=== PATIENT | male | born 1940 | race Two or more races ===

== ENCOUNTER 2018-02-14 20:17 | Inpatient (IN) | payer MEDICARE, OTHER ==
[~2018-02-14] VITALS: Ht 167.6 cm; Wt 89.4 kg
[2018-02-14 20:00] VITALS: BP 100/67
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
[2018-02-14] MEDS ORDERED: LORAZEPAM 0.5 MG TABLET PO PRN (21:00)
[2018-02-14] MEDS ORDERED: ACETAMINOPHEN 325 MG TABLET PO PRN (21:00)
[2018-02-14] MEDS ORDERED: MAGNESIUM HYDROXIDE 30 ML UDC PO PRN (21:00)
[2018-02-14] MEDS ORDERED: MAG HYDROX/AL HYDROX/SIMETH 30 ML UDC PO PRN (21:00)
[2018-02-14] MEDS ORDERED: GABA-534 PO (21:31)
[2018-02-14] MEDS ORDERED: PARO40TA PO (21:31)
[2018-02-14] MEDS ORDERED: ASPI-1169 PO (21:31)
[2018-02-14] MEDS ORDERED: CYAN50008 PO (21:31)
[2018-02-14] MEDS ORDERED: CARB-93 PO (21:31)
[2018-02-14] MEDS ORDERED: MAGN400T26 PO (21:31)
[2018-02-14] MEDS ORDERED: TAMS-12 PO (21:31)
[2018-02-14] MEDS ORDERED: ATOR40TA PO (21:31)
[2018-02-14] MEDS: GABAPENTIN 300 MG CAPSULE PO SCH (23:00)
[2018-02-14] MEDS: TAMSULOSIN 0.4 MG CAP.SR.24H PO SCH (23:01)
[2018-02-14] MEDS: ATORVASTATIN 40 MG TABLET PO SCH (23:01)
[2018-02-15 02:03] VITALS: BP 109/68
[2018-02-15] MEDS: CARBIDOPA/LEVODOPA 25/100 MG 1 UDTAB PO SCH ×3 (08:13→16:11)
[2018-02-15] MEDS: MAGNESIUM OXIDE 400 MG TABLET PO SCH (08:13)
[2018-02-15] MEDS: ASPIRIN 81 MG TAB.CHEW PO SCH (08:13)
[2018-02-15] MEDS ORDERED: CYANOCOBALAMIN 500 MCG TABLET PO SCH (09:00)
[2018-02-15 09:21] VITALS: BP 130/73
[2018-02-15] MEDS: CYANOCOBALAMIN 500 MCG TABLET PO SCH (12:51)
[2018-02-15 16:38] VITALS: BP 113/75
[2018-02-15] MEDS: SERTRALINE HCL 50 MG TABLET PO SCH (17:58)
[2018-02-15 20:37] VITALS: BP 119/51
[2018-02-15] MEDS: ATORVASTATIN 40 MG TABLET PO SCH (21:19)
[2018-02-15] MEDS: GABAPENTIN 300 MG CAPSULE PO SCH (21:19)
[2018-02-15] MEDS: TAMSULOSIN 0.4 MG CAP.SR.24H PO SCH (21:37)
[2018-02-15] MEDS ORDERED: TAMSULOSIN 0.4 MG CAP.SR.24H PO SCH (22:00)
[2018-02-15] MEDS ORDERED: ATORVASTATIN 40 MG TABLET PO SCH (22:00)
[2018-02-15] MEDS ORDERED: GABAPENTIN 300 MG CAPSULE PO SCH (22:00)
[2018-02-16] MEDS: TEMAZEPAM 7.5 MG CAPSULE PO PRN (00:39)
[2018-02-16 08:00] VITALS: BP 102/72
[2018-02-16] MEDS: CARBIDOPA/LEVODOPA 25/100 MG 1 UDTAB PO SCH ×3 (08:28→16:03)
[2018-02-16] MEDS: MAGNESIUM OXIDE 400 MG TABLET PO SCH (08:28)
[2018-02-16] MEDS: SERTRALINE HCL 50 MG TABLET PO SCH (08:28)
[2018-02-16] MEDS: CYANOCOBALAMIN 500 MCG TABLET PO SCH (08:29)
[2018-02-16] MEDS: ASPIRIN 81 MG TAB.CHEW PO SCH (08:30)
[2018-02-16 09:08] LABS: BASOPHILS % (AUTO) 0.4 % (0.0-2.0); HEMATOCRIT 44 % (39-51); HEMOGLOBIN 14.4 g/dL (13.5-17.5); LYMPHOCYTES # (AUTO) 2.2 /CMM (0.8-4.8); LYMPHOCYTES % (AUTO) 34.3 % (20.0-44.0); MEAN CORPUSCULAR HGB CONC 33 g/dl (31.0-36.0); MEAN CORPUSCULAR VOLUME 95 fL (80-96); MONOCYTES # (AUTO) 0.7 /CMM (0.1-1.30); MONOCYTES % (AUTO) 11.5 % (2.0-12.0); NEUTROPHILS # (AUTO) 3.2 /CMM (1.8-8.9); NEUTROPHILS % (AUTO) 50.8 % (43.0-81.0); PLATELET COUNT (AUTO) 239 /CMM (150-450); RDW COEFFICIENT OF VARIATION 13.2 (11.5-15.0); RED BLOOD CELL COUNT(AUTO) 4.59 MIL/uL (4.5-6.0); WHITE BLOOD COUNT (AUTO) 6.4 K/uL (4.3-11.0)
[2018-02-16 09:33] LABS: THYROID STIMULATING HORMONE 2.771 uIU/mL (0.358-3.74)
[2018-02-16 09:41] LABS: ALANINE AMINOTRANSFERASE 18 U/L (12-78); ALBUMIN 3.4 g/dL (3.4-5.0); ALKALINE PHOSPHATASE 89 U/L (46-116); ASPARTATE AMINOTRANSFERASE 29 U/L (15-37); BILIRUBIN,TOTAL 0.7 mg/dL (0.2-1.0); CALCIUM, SERUM 8.7 mg/dL (8.5-10.1); CARBON DIOXIDE 25 mmol/L (21-32); CHLORIDE 103 mmol/L (98-107); GLUCOSE 100 mg/dL (74-106); MAGNESIUM 2.1 mg/dL (1.8-2.4); PHOSPHORUS 4.2 mg/dL (2.5-4.9); POTASSIUM 4.2 mmol/L (3.5-5.1); SODIUM SERUM 138 mmol/L (136-145); TOTAL PROTEIN, SERUM 6.7 g/dL (6.4-8.2); UREA NITROGEN, BLOOD 19 mg/dL (7-18)
--- NOTE | 2018-02-16 14:46 | NUR ---
RAOUL called the pt's , Faith ([phone]), and discussed the initial discharge plan. She stated that the pt is welcome to return home upon discharge and that they will need psychiatric referrals.
--- NOTE | 2018-02-16 14:47 | NUR ---
Initial Discharge Plan: Pt currently lives at [address] [facility], [address], [place] [address]; ([phone]) with his , Faith Gorman ([phone]). Per pt and his , the pt will be returning home upon discharge. SW will work with the pt and the MD regarding discharge planning. SW will form a safe and proper discharge.
[2018-02-16 16:04] VITALS: BP 118/59
[2018-02-16 16:44] LABS: CHOLESTEROL 126 mg/dL (<200); HDL CHOLESTEROL 39 mg/dL (40-60); LDL 77 mg/dL (0-99); TRIGLYCERIDES 87 mg/dL (30-150)
--- NOTE | 2018-02-16 19:30 | NUR ---
GPS RN NOTE, RECEIVED PATIENT AWAKE AND IN BED, NO S/S OR COMPLAINTS OF PAIN AT THIS TIME. PATIENT IS DISPLAYING NO S/S OF APPARENT DISTRESS AT THIS TIME. PATIENT BREATHING IS UNLABORED WITH EQUAL RISE AND FALL OF THE CHEST. PATIENT IS ALERT AND ORIENTED X 3 ON ROOM AIR WITH A SPO2 OF 96%. PATIENT IS MED COMPLIANT, CALM, COOPERATIVE, DISORGANIZED, DEPRESSED, AND NEEDS REDIRECTION. PATIENT DENIES SUICIDE IDEATIONS AND HOMICIDAL IDEATIONS AT THIS TIME. PATIENT ASSISTED WITH TURNING AND REPOSITIONING Q 2HRS AND PRN FOR COMFORT AND CIRCULATION. PATIENT HAS NO NEEDS AT THIS TIME. PATIENT EDUCATED ON THE USE OF THE CALL MUNOZ. PATIENT BED SIDE RAILS UP X 2 FOR SAFETY, BED IS LOCKED, LOW, AND I WILL CONTINUE TO MONITOR AND MAINTAIN SAFETY Q15 MIN WITH THE HELP OF STAFF.
[2018-02-16 20:05] VITALS: BP 116/65
[2018-02-16] MEDS: TAMSULOSIN 0.4 MG CAP.SR.24H PO SCH (21:33)
[2018-02-16] MEDS: ATORVASTATIN 40 MG TABLET PO SCH (21:33)
[2018-02-16] MEDS: GABAPENTIN 300 MG CAPSULE PO SCH (21:33)
[2018-02-17 08:00] VITALS: BP 98/66
[2018-02-17] MEDS: SERTRALINE HCL 50 MG TABLET PO SCH (08:32)
[2018-02-17] MEDS: CYANOCOBALAMIN 500 MCG TABLET PO SCH (08:32)
[2018-02-17] MEDS: CARBIDOPA/LEVODOPA 25/100 MG 1 UDTAB PO SCH ×3 (08:32→16:01)
[2018-02-17] MEDS: MAGNESIUM OXIDE 400 MG TABLET PO SCH (08:32)
[2018-02-17] MEDS: ASPIRIN 81 MG TAB.CHEW PO SCH (08:32)
--- NOTE | 2018-02-17 10:52 | NUR ---
Radha Rdz ([phone]), pt's son, called the SW and stated that he does not think that the pt meets criteria to be inpatient and stated that he would like him to be discharged as soon as possible. SW stated that once Dr. Hurley provides a discharge date that she would inform the family about it.
--- NOTE | 2018-02-17 14:03 | NUR ---
RAOUL called the pt's son, Radha Rdz ([phone]), and informed him that the pt will be discharged on Thursday. He stated that he will talk to his mom and then call the SW back by to inform her about the discharge time.
[2018-02-17 16:00] VITALS: BP 126/76
[2018-02-17 19:51] VITALS: BP 95/96
[2018-02-17] MEDS: GABAPENTIN 300 MG CAPSULE PO SCH (21:02)
[2018-02-17] MEDS: TAMSULOSIN 0.4 MG CAP.SR.24H PO SCH (21:02)
[2018-02-17] MEDS: ATORVASTATIN 40 MG TABLET PO SCH (21:02)
[2018-02-17] MEDS: TEMAZEPAM 7.5 MG CAPSULE PO PRN (23:52)
[2018-02-18 08:00] VITALS: BP 100/64
[2018-02-18] MEDS: CARBIDOPA/LEVODOPA 25/100 MG 1 UDTAB PO SCH ×3 (08:55→17:07)
[2018-02-18] MEDS: SERTRALINE HCL 50 MG TABLET PO SCH (08:55)
[2018-02-18] MEDS: CYANOCOBALAMIN 500 MCG TABLET PO SCH (08:56)
[2018-02-18] MEDS: MAGNESIUM OXIDE 400 MG TABLET PO SCH (08:56)
[2018-02-18] MEDS: ASPIRIN 81 MG TAB.CHEW PO SCH (08:56)
--- NOTE | 2018-02-18 16:03 | NUR ---
RAOUL called the pt's son, Radha Rdz ([phone]), and informed him that she will have a list of psychiatrists for the pt when he is discharged. The son stated that his mom will picker box operator at the pt at 12pm.
--- NOTE | 2018-02-18 16:04 | NUR ---
SW called the pt's son, Radha Rdz ([phone]), and went over the psychiatrists that were found in their area that speak Farsi.
[2018-02-18 20:00] VITALS: BP 109/64
[2018-02-18] MEDS: TEMAZEPAM 7.5 MG CAPSULE PO PRN (20:25)
--- NOTE | 2018-02-18 20:25 | NUR ---
TEMAZEPAM 15 MG CAP PO GIVEN FOR SLEEP. PER PATIENT'S REQUEST.
[2018-02-18] MEDS: TAMSULOSIN 0.4 MG CAP.SR.24H PO SCH (22:01)
[2018-02-18] MEDS: GABAPENTIN 300 MG CAPSULE PO SCH (22:02)
[2018-02-18] MEDS: ATORVASTATIN 40 MG TABLET PO SCH (22:02)
[2018-02-19 08:00] VITALS: BP 99/67
[2018-02-19] MEDS: SERTRALINE HCL 50 MG TABLET PO SCH (09:17)
[2018-02-19] MEDS: CYANOCOBALAMIN 500 MCG TABLET PO SCH (09:18)
[2018-02-19] MEDS: ASPIRIN 81 MG TAB.CHEW PO SCH (09:18)
[2018-02-19] MEDS: MAGNESIUM OXIDE 400 MG TABLET PO SCH (09:18)
[2018-02-19] MEDS: CARBIDOPA/LEVODOPA 25/100 MG 1 UDTAB PO SCH (09:18)
--- NOTE | 2018-02-19 12:30 | NUR ---
GPS/RN PT DISCHARGED HOME WITH HIS VIA PRIVATE CAR. PRESCRIPTIONS , EXIT CARE INSTRUCTIONS, REFERRALS TO MD GIVEN AND UNDERSTOOD. PT REFUSED TO LET RN TO TAKE THE PICTURES. PROPERTY/CONTRABAND RETURNED. PT IS AMBULATORY, VSS NO SI OR HI AT THE TIME OF DISCHARGE.
--- NOTE | 2018-02-19 13:44 | NUR ---
Discharge Note: Pt is being discharged home to [address] [id number]; ([phone]). Pt will be picked up by his son, Radha ([phone]), around 12pm. Upon discharge, the pt appeared to be in a euthymic mood with an uplifted affect. The pt denied both suicidal and homicidal ideation as well as auditory and visual hallucinations. Pt was also provided with three psychiatrist referrals that are listed below. Pt was referred to Dr. Marisa Ly located [address] [facility], [place] [address]; phone number: and has an appointment with his primary dry chain puller, Dr. Pak, located at [address] [facility], [place] [address]; phone number: . Psychiatrist referrals: -Dr. Marisa Ly [facility] [address] [facility], [address] [address] -Dr. Bibi Smith [facility] [place], [place] [address] -Dr. Holly Prather [address] [facility], [address] [place], [place] [address]
== END 2018-02-19 12:30 | disposition home or self-care (01) | DRG 881 ==
LOC: GPS 20:17
PROVIDERS: ADMIT Psychiatry & Neurology Psychiatry; ATTEND Internal Medicine
DX: F32.9 Major depressive disorder, single episode, unspecified (principal); E44.1 Mild protein-calorie malnutrition; F29 Unspecified psychosis not due to a substance or known physiological condition; E66.9 Obesity, unspecified; E78.5 Hyperlipidemia, unspecified; E87.6 Hypokalemia; G20 Parkinson's disease; N40.0 Benign prostatic hyperplasia without lower urinary tract symptoms; Z68.31 Body mass index [BMI] 31.0-31.9, adult; Z91.5 Personal history of self-harm
CPT/HCPCS: 36415; 80053-TC; 80061-TC; 83735-TC; 84100-TC; 84300-TC; 84443-TC; 85025-TC; 87081-TC; 92611-TC